=== PATIENT | male | born 1960 | race Caucasian/White ===

== ENCOUNTER 2017-07-28 18:14 | Inpatient (IN) | payer MEDICARE, MEDICAID ==
[~2017-07-28] VITALS: Ht 172.7 cm; Wt 64.1 kg
[~2017-07-28 18:14] MED LIST: ACET1TAB12 PO; ALBU6.7H IH; DIPH25TA51 PO; FLUO-191 PO; IBUP-2077 PO; RISP2 PO; THIO10CA2 PO; TRAM50TA4 PO; ZOLP10TA6 PO
[2017-07-29] MEDS: ZOLPIDEM TARTRATE 10 MG TABLET PO PRN (00:24)
[2017-07-29] MEDS: LORazepam 2 MG TABLET PO PRN ×2 (00:24→18:33)
[2017-07-29 00:31] VITALS: BP 107/73
[2017-07-29 07:52] LABS: BASOPHILS % (AUTO) 0.9 % (0.0-2.0); EOSINOPHILS % (AUTO) 2.8 % (1.0-6.0); HEMATOCRIT 41.5 % (41-53); HEMOGLOBIN 14.3 g/dL (13.5-17.5); LYMPHOCYTES # (AUTO) 1.8 K/uL (1.0-4.8); LYMPHOCYTES % (AUTO) 31.5 % (22.0-44.0); MEAN CORPUSCULAR HEMOGLOBIN 30.8 pg (26.0-34.0); MEAN CORPUSCULAR HGB CONC 34.5 G/dL (31.0-37.0); MEAN CORPUSCULAR VOLUME 89 fL (80-100); MONOCYTES # (AUTO) 0.6 K/uL (0.1-1.0); MONOCYTES % (AUTO) 11.2 % (2.0-9.0); NEUTROPHILS % (AUTO) 53.6 % (40.0-70.0); PLATELET COUNT (AUTO) 336 K/uL (150-450); RED BLOOD CELL COUNT(AUTO) 4.66 MIL/uL (4.50-5.90); RED CELL DISTRIBUTION WIDTH 14.8 % (11.5-14.5)
[2017-07-29 08:26] VITALS: BP 115/79
[2017-07-29 08:36] LABS: HEMOGLOBIN A1C 5.1 % (4.5-6.2)
[2017-07-29 08:54] LABS: ALANINE AMINOTRANSFERASE 29 U/L (12-78); ALBUMIN 3.3 g/dL (3.4-5.0); ALKALINE PHOSPHATASE 81 U/L (46-116); ANION GAP 5 mmol/L (8-16); ASPARTATE AMINOTRANSFERASE 17 U/L (15-37); BILIRUBIN,TOTAL 0.2 mg/dL (0.1-1.0); CALCIUM, TOTAL 9.1 mg/dL (8.8-10.5); CARBON DIOXIDE 30 mmol/L (22-29); CHLORIDE 103 mmol/L (98-107); CHOL/HDL RATIO 3.6 (4.2-7.3); CHOLESTEROL 171 mg/dL (131-200); CREATININE 0.75 mg/dL (0.60-1.30); FREE T4 (FREE THYROXINE) 0.96 ng/dL (0.76-1.46); GLOMERULAR FILTR. RATE CALC > 60 mL/min (>60); GLUCOSE,RANDOM 94 mg/dL (70-110); HDL CHOLESTEROL 48 mg/dL (40-60); LDL CHOL (CALC.) 104 mg/dL (0-130); POTASSIUM 4.4 mmol/L (3.5-5.1); SODIUM SERUM 138 mmol/L (136-145); THYROID STIMULATING HORMONE 0.63 uIU/mL (0.36-3.74); TOTAL PROTEIN, SERUM 6.9 g/dL (6.4-8.2); TRIGLYCERIDES 97 mg/dL (15-150); UREA NITROGEN, BLOOD 18 mg/dL (7-18)
[2017-07-29 16:05] VITALS: BP 107/66
[2017-07-29] MEDS: NICOTINE 21 MG/24 HOUR PATCH TD SCH (17:14)
[2017-07-29] MEDS ORDERED: ALBUTEROL SULFATE HFA 90 MCG/PUFF 8 GM INHALER IH PRN (17:45)
[2017-07-29] MEDS ORDERED: BENZOCAINE/MENTHOL LOZENGE MM PRN (17:45)
[2017-07-29] MEDS ORDERED: MAGNESIUM HYDROXIDE SUSPENSION 30 ML UDCUP PO PRN (17:45)
[2017-07-29] MEDS ORDERED: MAG HYDROX/AL HYDROX/SIMETH ES 30 ML SUSPENSION UDCUP PO PRN (17:45)
[2017-07-29] MEDS ORDERED: LOPERAMIDE HCL 2 MG CAPSULE PO PRN (17:45)
[2017-07-29] MEDS ORDERED: CloNIDine HCL 0.1 MG TABLET PO PRN (17:45)
[2017-07-29] MEDS ORDERED: BACITRACIN 28.4 GM OINTMENT TP PRN (17:45)
[2017-07-29] MEDS ORDERED: ACETAMINOPHEN 325 MG TABLET PO PRN (17:45)
[2017-07-29] MEDS ORDERED: ONDANSETRON HCL 4 MG TABLET PO PRN (17:45)
[2017-07-29] MEDS ORDERED: PETROLATUM,WHITE 71 GM JELLY TP PRN (17:45)
[2017-07-30 06:53] VITALS: BP 103/63
[2017-07-30] MEDS: DOCUSATE SODIUM 100 MG CAPSULE PO SCH (08:07)
[2017-07-30] MEDS: LORazepam 2 MG TABLET PO PRN ×2 (08:08→17:28)
[2017-07-30] MEDS: NICOTINE 21 MG/24 HOUR PATCH TD SCH (08:08)
[2017-07-30] MEDS: OMEPRAZOLE 20 MG CAPSULE PO SCH (08:08)
[2017-07-30] MEDS: HALOPERIDOL 5 MG TABLET PO PRN (08:08)
[2017-07-30 08:53] VITALS: BP 100/68
[2017-07-30] MEDS: FLUoxetine HCL 20 MG CAPSULE PO SCH (12:09)
[2017-07-30 16:39] VITALS: BP 115/71
[2017-07-30] MEDS: RisperiDONE 2 MG TABLET PO SCH (17:28)
[2017-07-31 05:09] VITALS: BP 132/77
[2017-07-31 08:14] VITALS: BP 108/68
[2017-07-31] MEDS: OMEPRAZOLE 20 MG CAPSULE PO SCH (08:26)
[2017-07-31] MEDS: NICOTINE 21 MG/24 HOUR PATCH TD SCH (08:26)
[2017-07-31] MEDS: FLUoxetine HCL 20 MG CAPSULE PO SCH (08:26)
[2017-07-31] MEDS: DOCUSATE SODIUM 100 MG CAPSULE PO SCH (08:26)
[2017-07-31] MEDS: RisperiDONE 2 MG TABLET PO SCH ×2 (08:26→16:47)
[2017-07-31] MEDS: THIOTHIXENE 10 MG CAPSULE PO SCH ×2 (09:00→16:47)
[2017-07-31 16:05] VITALS: BP 109/71
[2017-07-31] MEDS: HALOPERIDOL 5 MG TABLET PO PRN (16:47)
[2017-07-31] MEDS: LORazepam 2 MG TABLET PO PRN (16:47)
[2017-07-31] MEDS: ZOLPIDEM TARTRATE 10 MG TABLET PO PRN (20:34)
[2017-08-01 06:47] VITALS: BP 110/65
[2017-08-01] MEDS: FLUoxetine HCL 20 MG CAPSULE PO SCH (08:51)
[2017-08-01] MEDS: OMEPRAZOLE 20 MG CAPSULE PO SCH (08:51)
[2017-08-01] MEDS: RisperiDONE 2 MG TABLET PO SCH ×2 (08:51→16:53)
[2017-08-01] MEDS: DOCUSATE SODIUM 100 MG CAPSULE PO SCH (08:51)
[2017-08-01] MEDS: HALOPERIDOL 5 MG TABLET PO PRN ×2 (08:51→16:53)
[2017-08-01] MEDS: THIOTHIXENE 10 MG CAPSULE PO SCH ×2 (08:51→16:53)
[2017-08-01] MEDS: NICOTINE 21 MG/24 HOUR PATCH TD SCH (08:51)
[2017-08-01 09:05] VITALS: BP 127/71
[2017-08-01 16:03] VITALS: BP 112/83
[2017-08-01] MEDS: LORazepam 2 MG TABLET PO PRN (16:53)
[2017-08-01] MEDS: ZOLPIDEM TARTRATE 10 MG TABLET PO PRN (20:35)
[2017-08-02 07:15] VITALS: BP 124/75
[2017-08-02 08:35] VITALS: BP 100/69
[2017-08-02] MEDS: THIOTHIXENE 10 MG CAPSULE PO SCH ×2 (09:38→16:31)
[2017-08-02] MEDS: OMEPRAZOLE 20 MG CAPSULE PO SCH (09:38)
[2017-08-02] MEDS: RisperiDONE 2 MG TABLET PO SCH ×2 (09:38→16:31)
[2017-08-02] MEDS: FLUoxetine HCL 20 MG CAPSULE PO SCH (09:38)
[2017-08-02] MEDS: DOCUSATE SODIUM 100 MG CAPSULE PO SCH (09:38)
[2017-08-02] MEDS: NICOTINE 21 MG/24 HOUR PATCH TD SCH (09:38)
[2017-08-02] MEDS: LORazepam 2 MG TABLET PO PRN ×2 (09:43→16:31)
[2017-08-02 16:05] VITALS: BP 103/62
[2017-08-02] MEDS: HALOPERIDOL 5 MG TABLET PO PRN (16:31)
[2017-08-02] MEDS: ZOLPIDEM TARTRATE 10 MG TABLET PO PRN (20:45)
[2017-08-03 06:16] VITALS: BP 104/65
[2017-08-03 08:05] VITALS: BP 104/67
[2017-08-03] MEDS: DOCUSATE SODIUM 100 MG CAPSULE PO SCH (09:10)
[2017-08-03] MEDS: RisperiDONE 2 MG TABLET PO SCH ×2 (09:10→16:20)
[2017-08-03] MEDS: FLUoxetine HCL 20 MG CAPSULE PO SCH (09:10)
[2017-08-03] MEDS: OMEPRAZOLE 20 MG CAPSULE PO SCH (09:10)
[2017-08-03] MEDS: LORazepam 2 MG TABLET PO PRN ×2 (09:11→16:20)
[2017-08-03] MEDS: HALOPERIDOL 5 MG TABLET PO PRN ×2 (09:11→16:20)
[2017-08-03] MEDS: NICOTINE 21 MG/24 HOUR PATCH TD SCH (09:11)
[2017-08-03] MEDS: THIOTHIXENE 10 MG CAPSULE PO SCH ×2 (09:11→16:20)
[2017-08-03 16:05] VITALS: BP 117/70
[2017-08-04] MEDS: ZOLPIDEM TARTRATE 10 MG TABLET PO PRN (00:53)
[2017-08-04 00:57] VITALS: BP 110/79
[2017-08-04] MEDS: NICOTINE 21 MG/24 HOUR PATCH TD SCH (08:28)
[2017-08-04] MEDS: THIOTHIXENE 10 MG CAPSULE PO SCH ×2 (08:29→16:08)
[2017-08-04] MEDS: RisperiDONE 2 MG TABLET PO SCH ×2 (08:29→16:08)
[2017-08-04] MEDS: OMEPRAZOLE 20 MG CAPSULE PO SCH (08:29)
[2017-08-04] MEDS: FLUoxetine HCL 20 MG CAPSULE PO SCH (08:29)
[2017-08-04] MEDS: DOCUSATE SODIUM 100 MG CAPSULE PO SCH (08:29)
[2017-08-04] MEDS: LORazepam 2 MG TABLET PO PRN ×2 (08:29→16:29)
[2017-08-04 08:40] VITALS: BP 110/77
[2017-08-04] MEDS ORDERED: FLUO-191 PO (09:52)
[2017-08-04] MEDS ORDERED: RISP2 PO (09:52)
[2017-08-04] MEDS ORDERED: THIOT10 PO (09:52)
[2017-08-04] MEDS: IBUPROFEN 600 MG TABLET PO PRN (11:41)
[2017-08-04] MEDS: HALOPERIDOL 5 MG TABLET PO PRN (12:33)
[2017-08-04 16:00] VITALS: BP 114/79
[2017-08-05 02:07] VITALS: BP 110/75
[2017-08-05 08:14] VITALS: BP 108/62
[2017-08-05] MEDS: OMEPRAZOLE 20 MG CAPSULE PO SCH (08:45)
[2017-08-05] MEDS: THIOTHIXENE 10 MG CAPSULE PO SCH ×2 (08:45→16:14)
[2017-08-05] MEDS: DOCUSATE SODIUM 100 MG CAPSULE PO SCH (08:45)
[2017-08-05] MEDS: RisperiDONE 2 MG TABLET PO SCH ×2 (08:45→16:14)
[2017-08-05] MEDS: HALOPERIDOL 5 MG TABLET PO PRN ×2 (08:45→16:15)
[2017-08-05] MEDS: NICOTINE 21 MG/24 HOUR PATCH TD SCH (08:45)
[2017-08-05] MEDS: LORazepam 2 MG TABLET PO PRN ×2 (08:45→16:15)
[2017-08-05] MEDS: FLUoxetine HCL 20 MG CAPSULE PO SCH (08:45)
[2017-08-05 16:02] VITALS: BP 110/62
[2017-08-06 02:16] VITALS: BP 118/78
[2017-08-06] MEDS: ZOLPIDEM TARTRATE 10 MG TABLET PO PRN (02:17)
[2017-08-06 08:06] LABS: CHOL/HDL RATIO 3.5 (4.2-7.3); THYROID STIMULATING HORMONE 4.11 uIU/mL (0.36-3.74)
[2017-08-06 08:29] VITALS: BP 114/69
[2017-08-06] MEDS: OMEPRAZOLE 20 MG CAPSULE PO SCH (08:36)
[2017-08-06] MEDS: THIOTHIXENE 10 MG CAPSULE PO SCH ×2 (08:36→16:58)
[2017-08-06] MEDS: NICOTINE 21 MG/24 HOUR PATCH TD SCH (08:36)
[2017-08-06] MEDS: HALOPERIDOL 5 MG TABLET PO PRN ×2 (08:36→16:58)
[2017-08-06] MEDS: DOCUSATE SODIUM 100 MG CAPSULE PO SCH (08:36)
[2017-08-06] MEDS: RisperiDONE 2 MG TABLET PO SCH ×2 (08:36→16:58)
[2017-08-06] MEDS: FLUoxetine HCL 20 MG CAPSULE PO SCH (08:36)
[2017-08-06] MEDS: LORazepam 2 MG TABLET PO PRN ×2 (08:36→16:58)
[2017-08-06 16:00] VITALS: BP 112/66
[2017-08-07 03:55] VITALS: BP 117/69
[2017-08-07 08:19] VITALS: BP 110/57
[2017-08-07] MEDS: OMEPRAZOLE 20 MG CAPSULE PO SCH (08:35)
[2017-08-07] MEDS: DOCUSATE SODIUM 100 MG CAPSULE PO SCH (08:35)
[2017-08-07] MEDS: THIOTHIXENE 10 MG CAPSULE PO SCH ×2 (08:35→16:27)
[2017-08-07] MEDS: FLUoxetine HCL 20 MG CAPSULE PO SCH (08:35)
[2017-08-07] MEDS: RisperiDONE 2 MG TABLET PO SCH ×2 (08:35→16:27)
[2017-08-07] MEDS: NICOTINE 21 MG/24 HOUR PATCH TD SCH (08:36)
[2017-08-07 16:05] VITALS: BP 120/83
[2017-08-07] MEDS: LORazepam 2 MG TABLET PO PRN (16:27)
[2017-08-07] MEDS: HALOPERIDOL 5 MG TABLET PO PRN (16:27)
[2017-08-07] MEDS: ZOLPIDEM TARTRATE 10 MG TABLET PO PRN (20:30)
[2017-08-08 03:41] VITALS: BP 102/73
[2017-08-08 08:21] VITALS: BP 109/68
[2017-08-08] MEDS: RisperiDONE 2 MG TABLET PO SCH ×2 (08:30→16:17)
[2017-08-08] MEDS: FLUoxetine HCL 20 MG CAPSULE PO SCH (08:30)
[2017-08-08] MEDS: DOCUSATE SODIUM 100 MG CAPSULE PO SCH (08:30)
[2017-08-08] MEDS: OMEPRAZOLE 20 MG CAPSULE PO SCH (08:30)
[2017-08-08] MEDS: NICOTINE 21 MG/24 HOUR PATCH TD SCH (08:30)
[2017-08-08] MEDS: THIOTHIXENE 10 MG CAPSULE PO SCH ×2 (08:31→16:16)
[2017-08-08 08:50] LABS: BASOPHILS % (AUTO) 0.5 % (0.0-2.0); EOSINOPHILS % (AUTO) 2.1 % (1.0-6.0); HEMATOCRIT 39.4 % (41-53); HEMOGLOBIN 13.3 g/dL (13.5-17.5); LYMPHOCYTES # (AUTO) 1.8 K/uL (1.0-4.8); MEAN CORPUSCULAR HEMOGLOBIN 30.4 pg (26.0-34.0); MEAN CORPUSCULAR HGB CONC 33.7 G/dL (31.0-37.0); MEAN CORPUSCULAR VOLUME 90 fL (80-100); MONOCYTES # (AUTO) 0.4 K/uL (0.1-1.0); NEUTROPHILS # (AUTO) 3.7 K/uL (1.8-7.7); NEUTROPHILS % (AUTO) 61.4 % (40.0-70.0); PLATELET COUNT (AUTO) 259 K/uL (150-450); RED BLOOD CELL COUNT(AUTO) 4.36 MIL/uL (4.50-5.90); RED CELL DISTRIBUTION WIDTH 14.9 % (11.5-14.5)
[2017-08-08 09:24] LABS: ALANINE AMINOTRANSFERASE 36 U/L (12-78); ALBUMIN 3.2 g/dL (3.4-5.0); ALKALINE PHOSPHATASE 79 U/L (46-116); ANION GAP 8 mmol/L (8-16); ASPARTATE AMINOTRANSFERASE 23 U/L (15-37); BILIRUBIN,TOTAL 0.2 mg/dL (0.1-1.0); CALCIUM, TOTAL 8.3 mg/dL (8.8-10.5); CARBON DIOXIDE 27 mmol/L (22-29); CHLORIDE 102 mmol/L (98-107); CHOL/HDL RATIO 3.2 (4.2-7.3); CHOLESTEROL 185 mg/dL (131-200); CREATININE 0.75 mg/dL (0.60-1.30); GLOMERULAR FILTR. RATE CALC > 60 mL/min (>60); GLUCOSE,RANDOM 156 mg/dL (70-110); HDL CHOLESTEROL 57 mg/dL (40-60); LDL CHOL (CALC.) 121 mg/dL (0-130); SODIUM SERUM 137 mmol/L (136-145); THYROID STIMULATING HORMONE 3.17 uIU/mL (0.36-3.74); TOTAL PROTEIN, SERUM 6.6 g/dL (6.4-8.2); TRIGLYCERIDES 35 mg/dL (15-150); UREA NITROGEN, BLOOD 13 mg/dL (7-18)
[2017-08-08] MEDS: LORazepam 2 MG TABLET PO PRN (13:12)
[2017-08-08 16:05] VITALS: BP 111/69
[2017-08-08 17:25] VITALS: BP 120/70
[2017-08-08] MEDS: IBUPROFEN 600 MG TABLET PO PRN (17:30)
[2017-08-08] MEDS: HALOPERIDOL 5 MG TABLET PO PRN (18:58)
[2017-08-09 04:28] VITALS: BP 117/64
[2017-08-09] MEDS: LORazepam 2 MG TABLET PO PRN ×2 (05:47→16:59)
[2017-08-09 08:14] VITALS: BP 107/73
[2017-08-09] MEDS: FLUoxetine HCL 20 MG CAPSULE PO SCH (09:16)
[2017-08-09] MEDS: NICOTINE 21 MG/24 HOUR PATCH TD SCH (09:16)
[2017-08-09] MEDS: OMEPRAZOLE 20 MG CAPSULE PO SCH (09:16)
[2017-08-09] MEDS: DOCUSATE SODIUM 100 MG CAPSULE PO SCH (09:17)
[2017-08-09] MEDS: RisperiDONE 2 MG TABLET PO SCH ×2 (09:17→16:20)
[2017-08-09] MEDS: THIOTHIXENE 10 MG CAPSULE PO SCH ×2 (09:17→16:20)
[2017-08-09 16:00] VITALS: BP 120/74
[2017-08-09] MEDS: ZOLPIDEM TARTRATE 10 MG TABLET PO PRN (21:00)
[2017-08-10 03:35] VITALS: BP 100/69
[2017-08-10 08:13] VITALS: BP 132/64
[2017-08-10] MEDS: RisperiDONE 2 MG TABLET PO SCH (09:15)
[2017-08-10] MEDS: OMEPRAZOLE 20 MG CAPSULE PO SCH (09:15)
[2017-08-10] MEDS: FLUoxetine HCL 20 MG CAPSULE PO SCH (09:15)
[2017-08-10] MEDS: THIOTHIXENE 10 MG CAPSULE PO SCH (09:16)
[2017-08-10] MEDS: NICOTINE 21 MG/24 HOUR PATCH TD SCH (09:16)
[2017-08-10] MEDS: DOCUSATE SODIUM 100 MG CAPSULE PO SCH (09:16)
== END 2017-08-10 10:45 | disposition home or self-care (01) | DRG 885 ==
LOC: B3A 23:14
PROVIDERS: ADMIT Psychiatry & Neurology Child & Adolescent Psychiatry; ATTEND Psychiatry & Neurology Child & Adolescent Psychiatry
DX: F25.1 Schizoaffective disorder, depressive type (principal); Z91.14 Patient's other noncompliance with medication regimen; E03.9 Hypothyroidism, unspecified; E55.9 Vitamin D deficiency, unspecified; F15.10 Other stimulant abuse, uncomplicated; F17.200 Nicotine dependence, unspecified, uncomplicated; F41.9 Anxiety disorder, unspecified; M54.9 Dorsalgia, unspecified; M25.50 Pain in unspecified joint; G47.00 Insomnia, unspecified; G89.29 Other chronic pain; J44.9 Chronic obstructive pulmonary disease, unspecified; K21.9 Gastro-esophageal reflux disease without esophagitis; M19.90 Unspecified osteoarthritis, unspecified site; Z79.899 Other long term (current) drug therapy; Z59.9 Problem related to housing and economic circumstances, unspecified; Z71.6 Tobacco abuse counseling
CPT/HCPCS: 82306; 83036; 84436; 84439; 84443

== ENCOUNTER 2020-09-08 21:07 | Emergency (ER) | payer MEDICARE, OTHER ==
[~2020-09-08] VITALS: Ht 175.3 cm; Wt 75.0 kg
[~2020-09-08 21:07] MED LIST changes: -ACET1TAB12 PO; -ALBU6.7H IH; -DIPH25TA51 PO; -IBUP-2077 PO; -RISP2 PO; +RISP2TAB45 PO; +THIOT10 PO; -TRAM50TA4 PO; -ZOLP10TA6 PO
[2020-09-08] MEDS ORDERED: ONDANSETRON HCL 4 MG TABLET PO ONE (22:30)
[2020-09-08] MEDS ORDERED: ACETAMINOPHEN 500 MG TABLET PO ONE (23:30)
[2020-09-09] MEDS ORDERED: PERTUSS(ACELL),DIPH,TET VAC/PF 0.5 ML SYRINGE IM. ONE (01:45)
[2020-09-09 01:49] VITALS: BP 104/79
== END 2020-09-09 02:00 | disposition home or self-care (01) ==
LOC: EMS 21:07
DX: S90.851A Superficial foreign body, right foot, initial encounter (principal); W45.8XXA Other foreign body or object entering through skin, initial encounter; Y93.89 Activity, other specified; Y92.89 Other specified places as the place of occurrence of the external cause; Y99.8 Other external cause status
CPT/HCPCS: 73630; 90471; 90715; 99285; Q0162